=== PATIENT | female | born 1970 | race Caucasian/White ===

== ENCOUNTER 2019-04-12 02:08 | Inpatient (IN) | payer OTHER ==
[2019-04-12] MEDS ORDERED: Morphine 4 MG/ML VIAL ONE (02:26)
[2019-04-12] MEDS ORDERED: Ondansetron PF 4 MG/2 ML Vial ONE (02:26)
[2019-04-12 02:57] LABS: Hemoglobin 11.5 g/dL (12.0-16.0); Mean Corpuscular HGB CONC 32.6 g/dL (32.0-36.0); Mean Corpuscular Hemoglobin 27.6 pg (27.0-31.0); Mean Corpuscular Volume 84.6 fL (78.0-98.0); Red Blood Cell (RBC) Count 4.16 mill/uL (4.20-5.40); White Blood Cell (WBC) Count 2.7 thou/uL (4.8-10.8)
[2019-04-12 03:11] LABS: #Lymphocytes 0.3 thou/uL (1.20-3.40); #Monocytes 0.1 thou/uL (0.11-0.59); #Neutrophils 2.2 thou/uL (1.40-6.50); %Basophils 1.3 % (0.0-1.0); %Eosinophils 0.5 % (0.0-10.0); %Lymphocytes 11.2 % (21.0-51.0); %Monocytes 3.5 % (0.0-10.0); %Neutrophils 83.6 % (42.0-75.0); Mean Platelet Volume 11.8 fL (7.4-10.4); Platelet Count 44 thou/uL (130-400); Platelet Morphology Comment Appears Decreased
[2019-04-12 04:29] VITALS: BMI 29.9
[2019-04-12] MEDS ORDERED: Morphine 2 MG/ML SYRINGE SLOW IVP PRN ×2 (04:34→16:37)
[2019-04-12] MEDS ORDERED: Dextrose 5 %-0.45 % NaCl 1,000 ML IV SCH (04:45)
[2019-04-12] MEDS ORDERED: Dextrose 5% in Water 1,000 ML IV PRN (08:23)
[2019-04-12] MEDS ORDERED: Dextrose 50% Abboject 50 ML SYRINGE SLOW IVP PRN (08:23)
[2019-04-12] MEDS ORDERED: Insulin Regular 300 UNITS/3 ML VIAL SC PRN (08:23)
--- NOTE | 2019-04-12 08:27 | HP ---
PRIMARY CARE PHYSICIAN: Lilly Keenan. CHIEF COMPLAINT: Abdominal discomfort. HISTORY OF PRESENT ILLNESS: The patient is a 48-year-old female with rectal cancer, status post colostomy in 2011, status post radiation and chemotherapy, currently followed at [facility], presented to the emergency room at [facility] with above complaints. Per family member, she is currently not on any chemotherapy. The patient had sudden onset of abdominal discomfort yesterday around lunchtime along with nausea and vomiting. She is currently somnolent after the pain medicine. She is unable to describe her symptoms further. According to the family member, she had several episodes of vomiting. The vomitus was nonbilious. The abdominal pain was generalized, sharp in nature without any aggravating or relieving factor. She is unable to tell me much about daily cholecystotomy output. No fever or chills reported. In the emergency room, initial vital signs showed temperature 99.5, respiration of 13, pulse rate of 70, blood pressure 139/114 with O2 saturation of 100% on room air. She underwent CT scan of the abdomen in the emergency room that showed findings most consistent with mid to distal partial small-bowel obstruction without any free air. NG tube was placed. She was transferred to this facility for hospital admission. She received 1 g meropenem, fentanyl 100 mcg x2, Zofran with IV fluids at [facility]. PAST MEDICAL HISTORY: 1. Diabetes mellitus type 2 on oral hypoglycemic. 2. Colorectal cancer as discussed above. 3. Portal hypertension. 4. Anxiety. PAST SURGICAL HISTORY: 1. Colostomy. 2. Surgical intervention for portal hypertension. 3. Debridement of the necrotic wound of the abdominal wall in December of 2009. ALLERGIES: THE PATIENT IS ALLERGIC TO PENICILLIN, SULFA, AND MACROBID. CURRENT HOME MEDICATION: 1. Xanax 0.5 mg daily. 2. Lexapro 10 mg daily. 3. Metformin 1000 mg b.i.d. 4. Nadolol 40 mg daily. 5. Protonix 40 mg daily. 6. MiraLAX 17 g daily. SOCIAL HISTORY: The patient currently lives at home with her family. She denies current use of tobacco, alcohol, or drug use. FAMILY HISTORY: Positive for mother with breast cancer. REVIEW OF SYSTEMS: Review of systems cannot be reliably obtained from the patient due to current mentation. PHYSICAL EXAMINATION: VITAL SIGNS: As discussed above. GENERAL: A 48-year-old female, in no apparent distress. Abdominal pain improving per the patient report. HEENT: Head, atraumatic and normocephalic. Sclerae anicteric. Moist mucous membranes. No oral lesion. NECK: Supple. No JVD. No carotid bruit. LUNGS: Clear to auscultation bilaterally. No wheezing, rales, or rhonchi. HEART: S1, S2 present. Regular rate and rhythm. No rubs or gallops appreciated. ABDOMEN: Soft. There was voluntary guarding. Bowel sounds were somewhat hyperactive. There was generalized tenderness on mild to moderate superficial palpation. No rebound. Colostomy with liquid stool noted. EXTREMITIES: No edema or calf tenderness. NEUROLOGY: Grossly nonfocal. Moves all 4 extremities. PSYCHIATRY: Alert, awake, and oriented x3. SKIN: Warm and dry. LYMPH NODES: No palpable lymph nodes in the neck. PERIPHERAL VASCULAR: Radial pulses palpable bilaterally. MUSCULOSKELETAL: No joint swelling, tenderness. LABORATORY FINDINGS: CBC showed WBC 2.7 with hemoglobin 11.7, hematocrit 38.5, platelet count of 75. Repeat platelet was 44. Chemistry showed sodium 133, potassium 4.8, chloride 101, bicarb 20, BUN 11, creatinine 0.84, albumin of 3.8. Lactic acid was 1.6. IMAGING STUDIES: CT scan of the abdomen and pelvis by my review as discussed above. IMPRESSION: 1. Abdominal pain with nausea and vomiting secondary to mid to distal partial small-bowel obstruction. 2. History of colorectal cancer, status post chemotherapy and radiation. 3. Anxiety. 4. Portal hypertension. 5. Metabolic acidosis. 6. Hyponatremia. 7. Chronic kidney disease, stage 2. 8. Diabetes mellitus type 2. 9. Penicillin, nitrofurantoin, and sulfa allergy. 10. Chronic anemia. 11. Pancytopenia, probably secondary to portal hypertension/suspected cirrhosis. PLAN: The patient will be monitored on the surgical floor. We will continue NG tube with mild intermittent suction. General Surgery consultation. We will check coagulation profile. Monitor platelet counts. Monitor electrolytes closely. Change IV fluid to half NS. Insulin sliding scale. Resume home medications once tolerating p.o. Plan of care was discussed with the patient in detail. She stated understanding. Job ID: [id number]
[2019-04-12 08:29] LABS: Hemoglobin 11.8 g/dL (12.0-16.0); Platelet Count 44 thou/uL (130-400)
[2019-04-12 08:34] LABS: INR-International Normal Ratio 1.2; PTT 31.4 SEC (22.9-36.1); Prothrombin Time 14.8 SEC (12.0-14.7)
[2019-04-12] MEDS ORDERED: Calcium Carbonate 500 MG ChewTAB PO PRN (08:34)
[2019-04-12] MEDS ORDERED: Ondansetron ODT 4 MG TAB PO PRN (08:34)
[2019-04-12] MEDS ORDERED: Ondansetron PF 4 MG/2 ML Vial IVP PRN (08:34)
[2019-04-12] MEDS ORDERED: Labetalol HCl 100 MG/20 ML VIAL SLOW IVP PRN (08:38)
[2019-04-12] MEDS ORDERED: hydrALAZINE 20 MG/ML VIAL SLOW IVP PRN (08:38)
[2019-04-12 08:49] LABS: ALT (SGPT) 20 U/L (8-55); AST (SGOT) 17 U/L (5-34); Albumin 3.5 g/dL (3.5-5.0); Alkaline Phosphatase 92 U/L (40-150); Anion Gap 11 mmol/L (10-20); BUN (Urea Nitrogen) 11 mg/dL (7.0-18.7); Bilirubin, Total 1.1 mg/dL (0.2-1.2); Calc. Creatinine Clearance 120 mL/min (70-130); Calcium 8.5 mg/dL (7.8-10.44); Carbon Dioxide 25 mmol/L (22-29); Chloride 102 mmol/L (98-107); Estimated GFR-MDRD 85; Globulin 3.1 g/dL (2.4-3.5); Glucose 383 mg/dL (70-105); Magnesium 1.4 mg/dL (1.6-2.6); Phosphorus 3.6 mg/dL (2.3-4.7); Potassium 3.6 mmol/L (3.5-5.1); Protein, Total 6.6 g/dL (6.0-8.3); Sodium 134 mmol/L (136-145)
[2019-04-12] MEDS ORDERED: SODIUM CHLORIDE 0.9% IVPB SCH (09:00)
[2019-04-12] MEDS ORDERED: MAGNESIUM SULFATE IVPB SCH (09:00)
[2019-04-12] MEDS ORDERED: POTASSIUM CHLORIDE IVPB SCH (09:00)
[2019-04-12] MEDS: Sodium Chloride 0.45% 1,000 ML IV SCH ×3 (09:17→18:58)
[2019-04-12] MEDS: Famotidine/PF 20 mg/2ml Vial SLOW IVP SCH ×2 (09:19→21:51)
--- NOTE | 2019-04-12 09:24 | RAD ---
PORTABLE CHEST: HISTORY: NG tube placement. COMPARISON: None. FINDINGS: Heart size appears slightly enlarged. NG tube is seen with the tip, appears to be overlying the ante rior region of the stomach. The lungs are clear of infiltrates. IMPRESSION: Nasogastric tube in satisfactory position. POS: OFF
[2019-04-12] MEDS ORDERED: Magnesium Sulfate 4 GM in Sodium Chloride 0.9% 250 ML 250 ML IVPB SCH (09:30)
--- NOTE | 2019-04-12 10:12 | RAD ---
ABDOMEN AND PELVIS UPRIGHT AND SUPINE IMAGIN04/12/2019 HISTORY: Small bowel obstruction. COMPARISON: None. FINDINGS: There is a nasogastric tube in the upper abdomen, to the right of midline. There is a distended loop of small bowel with an air-fluid level in the epigastric region, consistent with the patient's histo ry of small bowel obstruction. Generalized paucity of bowel gas limits detailed assessment. Metalli c densities in the left lower quadrant suggest embolization coils, and there are numerous postoperati ve clips in the pelvis. IMPRESSION: 1. Nasogastric tube in place. 2. Distended small bowel loop with an air-fluid level in the mid abdomen is consistent with the prov ided history of small bowel obstruction. POS: OFF
[2019-04-12] MEDS ORDERED: traMADol HCl 50 MG TAB PO PRN (16:37)
[2019-04-12] MEDS: Insulin Regular 300 UNITS/3 ML VIAL SC PRN (18:22)
--- NOTE | 2019-04-12 19:17 | CON ---
DATE OF CONSULTATION: 04/12/2019 REQUESTING PHYSICIAN: Dr. Bradley White. HISTORY: A 48-year-old woman with previous history of colorectal carcinoma status post proctocolectomy with end-colostomy in 2011. The patient is received chemoradiation therapy as part of her treatment. She presented to [facility] yesterday with insidious onset of vague abdominal pain, associated with multiple episodes of nausea and vomiting. She was unsure if this was bilious. She did not look. The pain became generalized in nature and was not relieved by any [id number] remedies. Workup included a CT scan of the abdomen and pelvis, which was suggestive of partial small-bowel obstruction, for which the patient was transferred to [facility]. At the time of my evaluation, the patient is awake and alert. She has a nasogastric tube, which was placed yesterday and has returned approximately 300 mL of nonbilious effluent. Colostomy also has started to produce over 300 mL of bilious stool. PAST MEDICAL HISTORY: Significant for colorectal carcinoma, type 2 diabetes mellitus, portal hypertension, and chronic anxiety disorder. PAST SURGICAL HISTORY: Pertinent for proctocolectomy with colostomy in 2011. Other pertinent surgical history includes debridement of necrotic abdominal wall wound in 2009. SOCIAL HISTORY: The patient lives independently. She denies any cigarette smoking, ethanol, or illicit drug abuse. FAMILY HISTORY: Noncontributory for this patient's age. PRE-HOSPITAL MEDICATIONS: Include, 1. Protonix 40 mg p.o. daily. 2. Nadolol 40 mg p.o. daily. 3. MiraLAX 17 g p.o. daily. 4. Metformin 1000 mg p.o. b.i.d. 5. Xanax 0.5 mg p.o. daily. 6. Lexapro 10 mg p.o. daily. ALLERGIES: TO PENICILLIN, SULFA DRUGS, AND NITROFURANTOIN. REVIEW OF SYSTEMS: Ten-point review of systems is essentially unremarkable except as stated in past medical history and chief complaint. PHYSICAL EXAMINATION: GENERAL: A 48-year-old woman who is otherwise in no acute distress at the time of my evaluation. VITAL SIGNS: Blood pressure 112/75, pulse 96, respiratory rate is 18, temperature is 98.1 degrees Fahrenheit, oxygen saturation 96% on room air. HEENT: Normocephalic and atraumatic. HEART: Regular rate and rhythm. No murmurs or gallops auscultated. LUNGS: Clear to auscultation bilaterally. Her breathing is regular and nonlabored. ABDOMEN: Soft, moderately distended, and mildly tender to palpation with no gross rebound tenderness present. Colostomy is viable and functional with stool and gas. The patient clearly has no peritoneal signs on examination. Liver and spleen are nonpalpable below costal margin. NEUROLOGIC: No focal deficits present. LABORATORY FINDINGS: CBC with 2700 white blood cells, hemoglobin and hematocrit 11.5 and 35.2 respectively. Platelet count 44,000. Metabolic profile; sodium 134, potassium is 3.6, chloride is 102, bicarb is 25, BUN is 11, creatinine 0.73, glucose 383, phosphorus 3.6, magnesium 1.4, AST and ALT 17 and 20 respectively. I have personally reviewed the CT scan of the abdomen and pelvis, which was obtained prior to this admission, which shows multiple distended loops of small bowel with air and fluid. There is no clear transition zone present. IMPRESSION: Acute partial small-bowel obstruction, likely secondary to adhesions versus resolving gastroenteritis. RECOMMENDATIONS: 1. Nasogastric tube will be discontinued, and the patient will be started on a clear liquid diet. 2. We will continue with serial physical examination and make further recommendations as necessary. There clearly is no acute surgical indication for this patient at this time. Thank you again, Dr. White, for allowing me the opportunity to participate in the care of this patient. Job ID: [id number]
[2019-04-12] MEDS: Famotidine 20 MG TAB PO SCH (21:51)
[2019-04-13] MEDS: Insulin Regular 300 UNITS/3 ML VIAL SC PRN ×4 (00:52→17:42)
--- NOTE | 2019-04-13 01:00 | PRG ---
DATE OF SERVICE: 04/12/2019 SUBJECTIVE: Ms. Cevallos is a 48-year-old female who was seen in evaluation on round this evening. The patient had general surgery consult with suspicion of acute partial small-bowel obstruction, status post proctocolectomy with end colostomy. The patient had discontinue NG tube earlier today. Since then, the patient had been doing good. There is no nausea, vomiting, or abdominal pain. When I was seeing her, she was sleeping comfortably. Her vital signs have been stable. PLAN: Continue to follow up with no surgical indication at this time per Dr. Conrad earlier today. Job ID: [id number] MTDD
[2019-04-13] MEDS: Sodium Chloride 0.45% 1,000 ML IV SCH ×3 (02:39→16:40)
[2019-04-13 06:31] LABS: #Eosinphils 0.1 thou/uL (0.0-0.7); #Lymphocytes 0.5 thou/uL (1.20-3.40); #Monocytes 0.2 thou/uL (0.11-0.59); #Neutrophils 1.3 thou/uL (1.40-6.50); %Eosinophils 2.5 % (0.0-10.0); %Lymphocytes 24.5 % (21.0-51.0); %Monocytes 9.5 % (0.0-10.0); %Neutrophils 62.4 % (42.0-75.0); Hemoglobin 10.5 g/dL (12.0-16.0); Mean Corpuscular HGB CONC 32.9 g/dL (32.0-36.0); Mean Corpuscular Hemoglobin 28.2 pg (27.0-31.0); Mean Corpuscular Volume 85.7 fL (78.0-98.0); Platelet Count 47 thou/uL (130-400); RBC Distribution Width 15.2 % (11.5-14.5); Red Blood Cell (RBC) Count 3.73 mill/uL (4.20-5.40)
[2019-04-13 07:00] LABS: ALT (SGPT) 15 U/L (8-55); AST (SGOT) 13 U/L (5-34); Alkaline Phosphatase 74 U/L (40-150); Anion Gap 8 mmol/L (10-20); BUN (Urea Nitrogen) 10 mg/dL (7.0-18.7); Calc. Creatinine Clearance 139 mL/min (70-130); Carbon Dioxide 24 mmol/L (22-29); Chloride 102 mmol/L (98-107); Estimated GFR-MDRD Greater than 90; Globulin 2.7 g/dL (2.4-3.5); Glucose 234 mg/dL (70-105); Magnesium 1.8 mg/dL (1.6-2.6); Phosphorus 1.9 mg/dL (2.3-4.7); Potassium 3.4 mmol/L (3.5-5.1); Protein, Total 5.7 g/dL (6.0-8.3); Sodium 131 mmol/L (136-145)
[2019-04-13 08:12] LABS: Large Platelets SLIGHT; MDiff Complete? YES; Ovalocytes SLIGHT = 2-5 cells (100X) (0-1/hpf); Platelet Morphology Comment Appears Decreased; Polychromasia SLIGHT = 2-3 cells (100X) (0-2/hpf)
[2019-04-13] MEDS: Famotidine/PF 20 mg/2ml Vial SLOW IVP SCH ×2 (08:16→19:44)
[2019-04-13] MEDS: Famotidine 20 MG TAB PO SCH ×2 (08:17→19:45)
[2019-04-13] MEDS ORDERED: Potassium Phosphate 30 MMOL, Magnesium Sulfate 2 GM in Sodium Chloride 0.9% 250 ML 250 ML IVPB SCH (08:45)
[2019-04-13] MEDS ORDERED: PHOS-NAK 1 PKT PACK PO SCH (09:00)
--- NOTE | 2019-04-13 12:13 | PRG ---
DATE OF SERVICE: 04/13/2019 SUBJECTIVE: Ms. Cevallos is a 48-year-old woman, presented with abdominal pain, nausea, and vomiting. I saw her yesterday, reviewed all her studies, which was consistent with acute partial small-bowel obstruction. Nasogastric tube was discontinued. The patient was started on a clear liquid diet yesterday. She tolerates diet. Reports no abdominal pain, nausea, or vomiting. Colostomy remains productive of liquid stool and gas. OBJECTIVE: VITAL SIGNS: This morning include blood pressure of 146/81, pulse 88, respiratory rate 16, temperature 98.5 degrees Fahrenheit, oxygen saturation 97% on room air. ABDOMEN: Soft, nontender, nondistended. Colostomy is viable and functional. She clearly has no abdominal tenderness or peritoneal signs on examination. LABORATORY FINDINGS: Include a CBC with 2000 white blood cells, hemoglobin and hematocrit 10.5 and 32.0 respectively, platelet count is stable at 47,000. Metabolic profile; sodium 131, potassium 3.4, chloride is 102, bicarb is 24, BUN 10, creatinine 0.63, glucose 234, magnesium 1.8, phosphorus 1.9. IMPRESSION: 1. Resolved acute partial small-bowel obstruction. 2. Acute hypokalemia. 3. Acute hypomagnesemia. 4. Acute hypophosphatemia. PLAN: 1. Correct abnormal electrolytes. 2. We will advance diet and activity. 3. There remains no acute surgical indication for this patient at this time. General Surgery will sign off this case and will be available to re-evaluate the patient on demand. 4. The patient may be discharged home if tolerating general diet by morning at the discretion of the Primary Service. Job ID: [id number]
--- NOTE | 2019-04-13 16:37 | PDOC.HOSPP ---
- Subjective Encounter Date: 04/13/19 Encounter Time: 09:30 Subjective: Patient seen and examined for SBO. NG tube dced. Some nausea. On Clear liqd diet. No new complaints. No overnight events - Objective Vital Signs & Weight: Vital Signs (12 hours) Temp Pulse Resp BP Pulse Ox 04/13/19 15:56 98.4 F 87 16 109/74 95 04/13/19 11:02 98.5 F 88 16 146/81 H 97 04/13/19 08:15 95 04/13/19 07:22 98.7 F 84 16 129/79 95 Weight Weight 180 lb 0.119 oz I&O: 04/12/19 04/13/19 04/14/19 06:59 06:59 06:59 Intake Total 2150 1840 Output Total 550 200 Balance -550 1950 1840 Result Diagrams: 04/13/19 06:18 04/13/19 06:18 Additional Labs: Accuchecks 04/13/19 04/13/19 04/13/19 11:08 05:46 00:12 POC Glucose 199 H 222 H 230 H 04/12/19 04/12/19 20:43 18:02 POC Glucose 252 H 251 H Radiology Reviewed by me: Yes (KUB - reviewed) Hospitalist ROS - Review of Systems Respiratory: denies: cough, dry, shortness of breath, hemoptysis, SOB with excertion, pleuritic pain, sputum, wheezing, other Cardiovascular: denies: chest pain, palpitations, orthopnea, paroxysmal noc. dyspnea, edema, light headedness, other - Medication Medications: Active Medications Generic Name Dose Route Start Last Admin Trade Name Freq PRN Reason Stop Dose Admin Famotidine 20 mg 04/12/19 09:00 04/13/19 08:16 Pepcid SLOW IVP 20 mg Q12HR MARY ELLEN Administration Famotidine 20 mg 04/12/19 21:00 04/13/19 08:17 Pepcid PO Not Given BID MARY ELLEN Insulin Human Regular 0 units 04/12/19 08:23 04/13/19 06:27 Humulin R SC 2 unit .BEDTIME SLIDING SC PRN Administration Bedtime Correctional Scale Insulin Human Regular 0 units 04/12/19 12:52 04/13/19 12:41 Humulin R SC 2 unit .MODERATE SLIDING SC PRN Administration Moderate Correctional Scale Ondansetron HCl 4 mg 04/12/19 08:34 04/12/19 11:01 Zofran IVP 4 mg Q6H PRN Administration Nausea/Vomiting - Exam General Appearance: NAD Heart: RRR, no rubs Respiratory: CTAB, no rales Gastrointestinal: soft, non-distended, no palpable masses, tender to palpation ( mild gen tenderness) Gastrointestinal - other findings: Colostomy with liqd stool Extremities: no edema Neurological: no new deficit Hosp A/P - Plan incentive spirometry, out of bed/ambulate IMPRESSION: 1. SBO causing abd pain/nausea 2. History of colorectal cancer, status post chemotherapy and radiation. 3. Anxiety. 4. Portal hypertension/Cirrhosis 5. Metabolic acidosis. 6. Hyponatremia/hypomagnesemia/hypophosphatemia 7. Chronic kidney disease, stage 2. 8. Diabetes mellitus type 2. 9. Penicillin, nitrofurantoin, and sulfa allergy. 10. Chronic anemia. 11. Pancytopenia prob due to hypersplenism PLAN: Replace Phosphorus/Potassium Advance diet Ambulate AM labs No Lovenox due to low platelets
--- NOTE | 2019-04-13 23:07 | PRG ---
DATE OF SERVICE: 04/13/2019 SUBJECTIVE: Ms. Cevallos is a _48 years old_ female with a history of colostomy and suspected partial small bowel obstruction resolved. She is under regular diet today. She reports no nausea or vomiting, however, she reports not in much because whenever she is sick, she likes to sleep a lot. She does not feel the need to eat or to feel hungry. She promised she will eat breakfast tomorrow to see if she tolerated with regular diet. Otherwise, she voices no concerns. She reports no fever or shortness of breath. Her vital signs have been stable. PLAN: Plan will be to be continue supportive care, correct abnormal electrolytes, continue regular diet. If the patient tolerated with regular diet and colostomy is working well, General Surgery will be sign off at this point. Job ID: [id number] MTDD
[2019-04-14] MEDS: Sodium Chloride 0.45% 1,000 ML IV SCH (04:25)
[2019-04-14 05:28] LABS: Phosphorus 2.1 mg/dL (2.3-4.7)
[2019-04-14 05:31] LABS: Anion Gap 9 mmol/L (10-20); BUN (Urea Nitrogen) 8 mg/dL (7.0-18.7); Calc. Creatinine Clearance 137 mL/min (70-130); Calcium 8.2 mg/dL (7.8-10.44); Carbon Dioxide 24 mmol/L (22-29); Chloride 104 mmol/L (98-107); Estimated GFR-MDRD Greater than 90; Glucose 174 mg/dL (70-105); Magnesium 1.9 mg/dL (1.6-2.6); Phosphorus 2.1 mg/dL (2.3-4.7); Potassium 3.4 mmol/L (3.5-5.1); Sodium 134 mmol/L (136-145)
[2019-04-14] MEDS: Insulin Regular 300 UNITS/3 ML VIAL SC PRN ×2 (06:37→13:43)
[2019-04-14] MEDS ORDERED: Potassium Phosphate 30 MMOL in Sodium Chloride 0.9% 500 ML IVPB SCH (06:45)
[2019-04-14] MEDS: Famotidine 20 MG TAB PO SCH (08:02)
[2019-04-14] MEDS: Famotidine/PF 20 mg/2ml Vial SLOW IVP SCH (08:13)
[2019-04-14 11:28] VITALS: BP 120/73; TEMP 97.7
--- NOTE | 2019-04-14 12:02 | DIS ---
DATE OF ADMISSION: 04/12/2019 DATE OF DISCHARGE: 04/14/2019 DISCHARGE DISPOSITION: Home. FOLLOWUP: 1. Follow up with primary care physician, Dr. Ted Bell, in 1 week. 2. Follow up with Dr. Armond Conrad in 2 weeks. 3. Repeat renal panel after 1 week is recommended, primary care physician advised to follow. ALLERGIES: THE PATIENT IS ALLERGIC TO PENICILLIN, SULFA, AND NITROFURANTOIN. DISCHARGE MEDICATIONS: 1. Lantus 10 units daily. 2. Potassium phosphate 250 mg 4 times daily for 10 doses. 3. All other home medications were left unchanged. The patient was seen and examined on the day of discharge. Denies any new complaints. BRIEF HOSPITAL COURSE: The patient is a 48-year-old female with rectal cancer, status post colostomy in 2011, status post radiation and chemotherapy, currently followed at [facility], presented to the emergency room at [facility] with abdominal discomfort. CT scan of the abdomen in the emergency room showed findings consistent with mid to distal partial small-bowel obstruction. NG tube was placed. She was kept n.p.o. and was started on IV fluids. She was monitored on the surgical floor. She was seen by General Surgery, Dr. Conrad. After conservative treatment, NG tube was discontinued. She also had some electrolyte abnormalities, which were replaced. She is tolerating regular consistency and has been cleared by General Surgery for discharge. FINAL DIAGNOSES: 1. Small bowel obstruction causing abdominal pain and nausea. 2. History of colorectal cancer, status post chemotherapy and radiation. 3. Portal hypertension with suspected cirrhosis. 4. Anxiety. 5. Hyponatremia, hypomagnesemia, and hypophosphatemia. 6. Chronic kidney disease, stage 2. 7. Diabetes mellitus, type 2. 8. Chronic anemia. 9. Pancytopenia, probably due to hypersplenism. 10. Diabetes mellitus, type 2. 11. Chronic anemia. 12. Penicillin, nitrofurantoin and sulfa allergy. 13. Moderate protein-calorie malnutrition. SIGNIFICANT LABORATORY DATA: Phosphorus 1.9, potassium 3.4, magnesium 1.4. Job ID: [id number] [facility]
== END 2019-04-14 14:40 | disposition home or self-care (01) | DRG 389 ==
LOC: ERS 02:08 → SURG A 02:55
PROVIDERS: ADMIT Hospitalist; ATTEND Hospitalist
DX: K56.600 Partial intestinal obstruction, unspecified as to cause (principal); C19 Malignant neoplasm of rectosigmoid junction; K76.6 Portal hypertension; E87.1 Hypo-osmolality and hyponatremia; D61.818 Other pancytopenia; E44.0 Moderate protein-calorie malnutrition; E87.2 Acidosis; K74.60 Unspecified cirrhosis of liver; F41.9 Anxiety disorder, unspecified; E83.42 Hypomagnesemia; E83.39 Other disorders of phosphorus metabolism; I12.9 Hypertensive chronic kidney disease with stage 1 through stage 4 chronic kidney disease, or unspecified chronic kidney disease; E11.22 Type 2 diabetes mellitus with diabetic chronic kidney disease; N18.2 Chronic kidney disease, stage 2 (mild); D63.1 Anemia in chronic kidney disease; D73.1 Hypersplenism; Z88.1 Allergy status to other antibiotic agents; Z88.0 Allergy status to penicillin; Z88.2 Allergy status to sulfonamides; K52.9 Noninfective gastroenteritis and colitis, unspecified; E87.6 Hypokalemia; Z68.30 Body mass index [BMI] 30.0-30.9, adult
CPT/HCPCS: 36415; 36416; 71045; 74019; 80053; 80069; 83036; 83735; 84100; 85025; 85610; 85730; 96361; 96374; 96375; J1815; J2270; J2405; J3475; J3480; J7050; S0028

== ENCOUNTER 2019-04-24 11:34 | Inpatient (IN) | payer OTHER ==
[2019-04-24] MEDS ORDERED: ISOVUE-370 76%-LOCM 1 ML ONE (13:02)
--- NOTE | 2019-04-24 13:14 | CT ---
EXAM: CT ABDOMEN AND PELVIS HISTORY: Colorectal cancer. History of small bowel obstruction. Abdominal pain. COMPARISON: 04/11/2015, 04/12/2019 Procedure: Multiple contiguous axial images were obtained and a CT of the abdomen and pelvis with IV contrast. C oronal reformats were performed. FINDINGS: Lower Chest: within normal limits. Vessels: Normal caliber aorta. No periaortic fat stranding Heart: Heart size. No significant pericardial fluid Abdomen: Portal vein:Patent Gallbladder: Grossly unremarkable Liver: Appropriate enhancement. No abnormal enhancing masses. Pancreas: within normal limits. Spleen: Splenomegaly. The measures 18.8 cm. Adrenals: within normal limits. Kidneys: Symmetric enhancement. No obstructive uropathy Peritoneum: There is free fluid. No pneumoperitoneum, mass or lymphadenopathy Bowel: Limited evaluation due to lack of oral contrast. Nasogastric tube is identified. Multiple flui d-filled loops of small bowel, similar to the examination from April 29. The distal small bowel loops do appear to be decompressed. The exact transition point is difficult to determine but th ere is evidence for a at least partial small bowel obstruction. There are scattered fecal material in a nondistended, nondilated colon. Left lower quadrant colostomy is identified. There is evidence o f stable parastomal mesentery. No obvious herniation of the small bowel through the ostomy. Mesentery and Retroperitoneum: No enlarged mesenteric or retroperitoneal lymph nodes. Abdominal Wall: Left lower quadrant colostomy is redemonstrated. Pelvis: Reproductive Organs: Surgically absent uterus. Pelvis: Slow surgical changes in the posterior pelvis, in the expected region of the rectum are redem onstrated. Bladder: Decompressed. Grossly unremarkable. Bones: within normal limits. IMPRESSION: 1. Redemonstration of a early/partial small bowel obstruction. The exact level of transition is diffi cult to appreciate. Consider general surgical consultation. 2. Left lower quadrant colostomy. 3. Previous proctocolectomy. 4. Splenomegaly.
[2019-04-24] MEDS ORDERED: Ondansetron PF 4 MG/2 ML Vial ONE (14:05)
[2019-04-24] MEDS ORDERED: Morphine 4 MG/ML VIAL ONE (14:05)
[2019-04-24] MEDS ORDERED: Ondansetron PF 4 MG/2 ML Vial IVP PRN (15:16)
[2019-04-24] MEDS ORDERED: Acetaminophen 325 MG TAB PO PRN (15:16)
[2019-04-24] MEDS ORDERED: Fentanyl 100 MCG/2 ML VIAL SLOW IVP PRN ×2 (15:29)
[2019-04-24] MEDS ORDERED: Dextrose 5% in Water 1,000 ML IV PRN (15:37)
[2019-04-24] MEDS ORDERED: Dextrose 50% Abboject 50 ML SYRINGE SLOW IVP PRN (15:37)
[2019-04-24] MEDS ORDERED: Sodium Chloride 0.9% (PF) 10 ML VIAL FS PRN (15:52)
--- NOTE | 2019-04-24 16:38 | HP ---
PRIMARY CARE PHYSICIAN: Dr. Bell. CHIEF COMPLAINT: Nausea, vomiting, and abdominal pain. HISTORY OF PRESENT ILLNESS: Ms. Cevallos is a 48-year-old female with rectal cancer, status post colostomy in 2011, status post radiation and chemotherapy, currently followed at [facility], who presented to the emergency room in [place] with abdominal pain, nausea, and vomiting. The patient started having abdominal pain this morning, reports vomiting and was seen at [facility] and diagnosed with a small-bowel obstruction. CT scan done this morning; impression, re-demonstration of early partial small bowel obstruction. Exact level of transition is difficult to appreciate. Consider general surgical consult; left lower quadrant colostomy, previous proctocolectomy, splenomegaly. LABORATORY DATA: White blood cell count 3, hemoglobin 11.8, hematocrit 38.6. Carbon dioxide 21. Glucose 267. Lipase is 5. The patient was given several doses of fentanyl, was given 50 mcg en route, was still vomiting on the transition from [facility] to [facility], where she was transferred for admission and surgical consult. The patient was admitted for a similar complaint and discharged on 04/14/2019. She will be readmitted to the hospital for further management. PAST MEDICAL HISTORY: Diabetes type 2, on oral hypoglycemic; colorectal cancer as discussed above; portal hypertension; anxiety. PAST SURGICAL HISTORY: Colostomy; surgical intervention for portal hypertension; debridement of necrotic wound of the abdominal wall in December of 2009. ALLERGIES: PENICILLIN, SULFA, AND MACROBID. HOME MEDICATIONS: These are still need to be verified; 1. Xanax 0.5 mg p.o. daily. 2. Lexapro 10 mg p.o. daily. 3. Metformin 1000 mg p.o. b.i.d. 4. Nadolol 40 mg p.o. daily. 5. Protonix 40 mg p.o. daily. 6. MiraLAX 17 g p.o. daily. 7. Insulin Lantus 10 units subcu daily. 8. K-Phos 250 mg p.o. q.i.d. SOCIAL HISTORY: The patient currently lives at home with her family. FAMILY HISTORY: Positive with mother for breast cancer. REVIEW OF SYSTEMS: Review of systems cannot be reliably obtained as the patient is somewhat somnolent after medication given to her by the EMS. PHYSICAL EXAMINATION: VITAL SIGNS: Blood pressure 135/76, pulse is 59, respirations are 16, temperature is 98.4, pO2 saturations are 95% on room air. CONSTITUTIONAL: The patient is somnolent, but easily aroused. She appears nontoxic. She is oriented to person, place, and time. HEENT: Head is atraumatic and normocephalic. Eyes, pupils are equally round and reactive to light. Eyelids are normal to inspection. ENT; mucous membranes are moist. Mouth exam is normal. NECK: Trachea is midline. No tenderness. RESPIRATORY/CHEST: Breath sounds are clear. Chest expansion is equal. CARDIOVASCULAR: Regular heart rate and rhythm. Heart sounds are normal. ABDOMEN: Diffusely tender. Distention is present. Colostomy present to left lower quadrant with excretions in the bag. Bowel sounds are decreased. No peritoneal signs. BACK: Normal range of motion. No tenderness. EXTREMITIES: Upper extremities; range of motion is normal, motor strength is normal, radial pulses are normal. Lower extremities; normal range of motion. Sensation intact. Motor strength is normal. Pedal pulses are normal. NEUROLOGIC: The patient is somnolent, will answer questions when asked. Speech is normal. SKIN: Warm and dry. Normal in color. PLAN/ASSESSMENT: 1. Small bowel obstruction, appears partial on the CT scan. Dr. Lorenzo has been notified by the emergency room and agrees to consult and see the patient. NG tube has been placed on a low to intermittent suction. We will add pain medications, Zofran. We will await Dr. Lorenzo's recommendations. 2. History of diabetes type 2. Add a sliding scale. Accu-Cheks before meals at bedtime. We will trend. 3. History of hypertension, restart home medications as needed. 4. Case was discussed with Dr. Molina, who agrees with plan. 5. Deep venous thrombosis prophylaxis with SCDs. Gastrointestinal prophylaxis has been started. 6. Hospital course is dependent on clinical findings. Job ID: [id number]
[2019-04-24 16:56] VITALS: BMI 28.2
[2019-04-24] MEDS: Sodium Chloride 0.45% 1,000 ML IV SCH (17:31)
[2019-04-24] MEDS: Pantoprazole 40 MG VIAL IVP SCH (19:38)
[2019-04-25] MEDS: Sodium Chloride 0.45% 1,000 ML IV SCH ×3 (05:28→20:43)
[2019-04-25 06:01] LABS: ALT (SGPT) 15 U/L (8-55); AST (SGOT) 17 U/L (5-34); Albumin 3.3 g/dL (3.5-5.0); Alkaline Phosphatase 63 U/L (40-150); Anion Gap 8 mmol/L (10-20); BUN (Urea Nitrogen) 13 mg/dL (7.0-18.7); Calc. Creatinine Clearance 115 mL/min (70-130); Calcium 8.6 mg/dL (7.8-10.44); Carbon Dioxide 26 mmol/L (22-29); Chloride 105 mmol/L (98-107); Estimated GFR-MDRD 86; Globulin 2.7 g/dL (2.4-3.5); Glucose 159 mg/dL (70-105); Potassium 3.2 mmol/L (3.5-5.1); Sodium 136 mmol/L (136-145)
[2019-04-25 06:09] LABS: #Lymphocytes 0.7 thou/uL (1.20-3.40); #Monocytes 0.2 thou/uL (0.11-0.59); #Neutrophils 2.6 thou/uL (1.40-6.50); %Basophils 0.6 % (0.0-1.0); %Eosinophils 1.2 % (0.0-10.0); %Lymphocytes 20.1 % (21.0-51.0); %Monocytes 5.9 % (0.0-10.0); %Neutrophils 72.2 % (42.0-75.0); Hemoglobin 11.4 g/dL (12.0-16.0); Mean Corpuscular HGB CONC 31.9 g/dL (32.0-36.0); Mean Corpuscular Hemoglobin 27.2 pg (27.0-31.0); Mean Corpuscular Volume 85.1 fL (78.0-98.0); Mean Platelet Volume 11.7 fL (7.4-10.4); Platelet Count 59 thou/uL (130-400); RBC Distribution Width 15.4 % (11.5-14.5); Red Blood Cell (RBC) Count 4.21 mill/uL (4.20-5.40); White Blood Cell (WBC) Count 3.7 thou/uL (4.8-10.8)
--- NOTE | 2019-04-25 11:57 | CON ---
DATE OF CONSULTATION: CHIEF COMPLAINT: Abdominal pain and vomiting. HISTORY OF PRESENT ILLNESS: This is a 48-year-old female, who is status post abdominoperineal resection for rectal cancer at [facility] in 2011. She says she is cancer-free and she has a permanent colostomy. She was recently admitted for a small bowel obstruction, which resolved about 2 weeks ago and now has recurred. PAST MEDICAL HISTORY: Colon cancer, portal hypertension, diabetes, and anxiety. PAST SURGICAL HISTORY: Abdominal peroneal resection in 2011. MEDICATIONS: 1. Xanax. 2. Lexapro. 3. Metformin. 4. Nadolol. 5. MiraLAX. 6. Insulin. ALLERGIES: TO PENICILLIN, MACROBID, AND SULFA. SOCIAL HISTORY: She is , disabled. No tobacco. Rare alcohol. FAMILY HISTORY: Diabetes and hypertension. PHYSICAL EXAMINATION: VITAL SIGNS: Temperature 98.5, pulse 65, and blood pressure 126/77. GENERAL: She is awake. Has an NG in place. NG is putting out minimal only 100 out. ABDOMEN: Soft and nondistended. There is stool in her colostomy. IMAGING DATA: CT scan shows dilated small bowel with no transition zone. LABORATORY DATA: Her white count is 3.7, H and H are 11 and 35, and platelet count 59,000. Electrolytes, elevated glucose at 159. Creatinine 0.7. LFTs fine. ASSESSMENT: Partial small bowel obstruction. PLAN: Gastrografin swallow via NG tube. Job ID: [id number]
--- NOTE | 2019-04-25 13:08 | RAD ---
Small bowel exam/follow-through HISTORY: Colon cancer. Obstruction. FINDINGS: [employer] shows ostomy appliance over the left abdomen. Contrast material within the urinar y bladder from recent CT. Gastrografin contrast was administered through the nasogastric tube. Mild dilatation of loops of jeju num within the mid abdomen are less pronounced than on the recent CT. At 1 hour, there is faint contrast within the remaining colon. Contrast is apparent at the splenic flexure at 2 hours. IMPRESSION: No high-grade bowel obstruction on this exam. Small bowel distention has improved slightl y.
[2019-04-25] MEDS ORDERED: MD-Gastroview 120 ML BOT ONE (13:22)
--- NOTE | 2019-04-25 15:26 | PRG ---
DATE OF SERVICE: 04/25/2019 SUBJECTIVE: The patient is seen and examined at bedside. She just came back from her testing on her small bowel. She is still very sleepy, but apparently, she had a lot of output in her bag postprocedure. OBJECTIVE: VITAL SIGNS: Blood pressure is 126/77, pulse is 65, temperature is 98.5, respirations 16, and O2 saturation is 92% on room air. HEENT: Her oral mucosa is dry. Conjunctivae are pinkish. Sclerae are nonicteric. LUNGS: Clear. HEART: S1 and S2 normal. She has an NG tube in her right nostril. ABDOMEN: Soft. Mildly distended. There is a left lower quadrant colostomy bag in place with a liquidy brownish fluid. Bowel sounds are present. EXTREMITIES: No clubbing, cyanosis, or edema. NEUROLOGIC: She is alert and oriented x4. There are no any motor or sensory deficits. LABORATORY DATA: Labs showed white count of 3.6, hemoglobin 11.4, hematocrit 35.8, platelet count is 59,000. Sodium of 136, potassium 3.2, chloride 105, CO2 of 26, BUN 13, creatinine of 0.72, glucose is ranging from 156 to 267 and the rest of chemistry is within normal limits. Small bowel x-ray results showed small-bowel distention, which improved slightly compared to the previous examination and there was no high-grade bowel obstruction on this examination. IMPRESSION: 1. Partial small-bowel obstruction, resolved. 2. Diabetes mellitus, type 2. 3. Hypertension. PLAN: We are going to restart her clonazepam and restart her citalopram in the next day after she is not using Zofran because of the interaction between those two. We will keep her on NG tube slow suctioning, and we will do Accu-Cheks q.6 hours and cover with mild sliding scale. Most likely, we will start her on clear liquids, but this is left up to the surgeon sometime soon. Job ID: [id number]
[2019-04-25] MEDS: clonazePAM 0.5 MG TAB PO SCH (20:42)
[2019-04-25] MEDS: Pantoprazole 40 MG VIAL IVP SCH (20:42)
[2019-04-26] MEDS: clonazePAM 0.5 MG TAB PO SCH ×2 (08:25→20:21)
[2019-04-26] MEDS ORDERED: Escitalopram Oxalate 10 mg Tablet PO SCH (09:00)
[2019-04-26 09:22] LABS: #Eosinphils 0.1 thou/uL (0.0-0.7); #Lymphocytes 0.5 thou/uL (1.20-3.40); #Monocytes 0.1 thou/uL (0.11-0.59); #Neutrophils 1.3 thou/uL (1.40-6.50); %Basophils 0.8 % (0.0-1.0); %Eosinophils 2.8 % (0.0-10.0); %Lymphocytes 23.9 % (21.0-51.0); %Monocytes 6.6 % (0.0-10.0); Hemoglobin 10.7 g/dL (12.0-16.0); Mean Corpuscular HGB CONC 32.5 g/dL (32.0-36.0); Mean Corpuscular Hemoglobin 27.7 pg (27.0-31.0); Mean Corpuscular Volume 85.1 fL (78.0-98.0); Mean Platelet Volume 11.2 fL (7.4-10.4); Platelet Count 50 thou/uL (130-400); RBC Distribution Width 15.5 % (11.5-14.5); Red Blood Cell (RBC) Count 3.87 mill/uL (4.20-5.40)
[2019-04-26 09:35] LABS: Anion Gap 14 mmol/L (10-20); BUN (Urea Nitrogen) 14 mg/dL (7.0-18.7); Calc. Creatinine Clearance 129 mL/min (70-130); Calcium 8.2 mg/dL (7.8-10.44); Carbon Dioxide 21 mmol/L (22-29); Chloride 108 mmol/L (98-107); Estimated GFR-MDRD Greater than 90; Glucose 126 mg/dL (70-105); Potassium 3.1 mmol/L (3.5-5.1); Sodium 140 mmol/L (136-145)
[2019-04-26] MEDS: HumaLOG 300 UNITS/3 ML VIAL SC PRN ×2 (12:41→16:29)
[2019-04-26] MEDS: Nadolol 40 MG TAB PO SCH (12:43)
[2019-04-26] MEDS: K-Phos Neutral 250 MG TAB PO SCH ×3 (12:44→20:20)
--- NOTE | 2019-04-26 13:20 | PRG ---
DATE OF SERVICE: 04/26/2019 SUBJECTIVE: The patient is doing well. No nausea or vomiting. She has had multiple bowel movements. Small bowel followthrough showed no evidence of obstruction. OBJECTIVE: VITAL SIGNS: Temperature 97.7, pulse 71, and blood pressure 116/70. ABDOMEN: Soft, nondistended, and nontender. Ostomy working well. ASSESSMENT: Small bowel obstruction, resolved. PLAN: Discontinue NG. Clear liquid diet, advance as tolerated. No surgery needed. Job ID: [id number]
--- NOTE | 2019-04-26 16:32 | PRG ---
DATE OF SERVICE: 04/26/2019 SUBJECTIVE: The patient is seen and examined at the bedside. She has NG tube in her right nostril. She looks tired and somewhat sick, but she states that she feels better this morning. OBJECTIVE: VITAL SIGNS: Blood pressure is 116/70, pulse is 71, temperature is 97.7, respiratory rate is 12, O2 saturation is 98% on room air. HEENT: Sclerae are nonicteric. Oral mucosa is dry. NECK: Supple. LUNGS: Clear. HEART: S1 and S2, normal. ABDOMEN: Soft, mildly distended. She has a colostomy bag in the left lower quadrant of the abdomen, which has small amount of liquid, which is brownish in color. NEUROLOGIC: She follows my commands. She moves her all 4 extremities. There are no any sensory or motor deficits present. Cranial nerves are intact. LABORATORY DATA: Showed white count of 2.0, hemoglobin of 10.7, hematocrit 33.0, platelet count is 50. Sodium of 140, potassium 3.1, chloride 108, CO2 of 21, BUN 14, creatinine 0.64. Glycemia is ranging from 116 to 248. Calcium is 8.2. IMPRESSION: 1. Partial small-bowel obstruction, resolved. 2. Diabetes mellitus, type 2. 3. Pancytopenia. DISCUSSION: The case was discussed with Dr. Lorenzo, who recommends discontinuation of NG tube and starting clear liquids and advancing diet as tolerated since the partial obstruction has resolved. Also, we will discuss with her recent chemotherapy therapy treatments for her colorectal cancer. If she had any chemotherapy done recently, which would explain her pancytopenia. Also, we will replace her potassium, check her magnesium and if she tolerates her advanced diet, she will be going home tomorrow. Job ID: [id number]
[2019-04-26] MEDS: Pantoprazole 40 MG VIAL IVP SCH (20:21)
[2019-04-26] MEDS: Sodium Chloride 0.45% 1,000 ML IV SCH (20:58)
[2019-04-27] MEDS: HumaLOG 300 UNITS/3 ML VIAL SC PRN ×2 (05:56→12:36)
[2019-04-27 07:30] VITALS: TEMP 98.4
[2019-04-27] MEDS: Nadolol 40 MG TAB PO SCH (08:23)
[2019-04-27] MEDS: K-Phos Neutral 250 MG TAB PO SCH ×2 (08:23→12:36)
[2019-04-27] MEDS: clonazePAM 0.5 MG TAB PO SCH (08:23)
[2019-04-27] MEDS: Sodium Chloride 0.45% 1,000 ML IV SCH (08:24)
[2019-04-27 09:40] LABS: #Eosinphils 0.1 thou/uL (0.0-0.7); #Lymphocytes 0.5 thou/uL (1.20-3.40); #Monocytes 0.2 thou/uL (0.11-0.59); #Neutrophils 0.9 thou/uL (1.40-6.50); %Eosinophils 3.8 % (0.0-10.0); %Lymphocytes 33.8 % (21.0-51.0); %Monocytes 9.6 % (0.0-10.0); %Neutrophils 52.9 % (42.0-75.0); Mean Corpuscular HGB CONC 32.3 g/dL (32.0-36.0); Mean Corpuscular Hemoglobin 27.6 pg (27.0-31.0); Mean Corpuscular Volume 85.4 fL (78.0-98.0); Mean Platelet Volume 11.8 fL (7.4-10.4); Platelet Count 54 thou/uL (130-400); RBC Distribution Width 15.5 % (11.5-14.5); Red Blood Cell (RBC) Count 3.98 mill/uL (4.20-5.40); White Blood Cell (WBC) Count 1.6 thou/uL (4.8-10.8)
[2019-04-27 18:07] VITALS: BP 134/83
--- NOTE | 2019-04-27 21:33 | DIS ---
DATE OF ADMISSION: 04/24/2019 DATE OF DISCHARGE: 04/27/2019 FINAL DIAGNOSES: 1. Partial small-bowel obstruction, resolved. 2. Diabetes mellitus, type 2. 3. Pancytopenia. 4. History of colorectal cancer. INGOT CASTER: Dr. Lorenzo, General Surgery. HOSPITAL COURSE: The patient is a 48-year-old female with history of rectal cancer status post colectomy in 2011, status post radiation and chemotherapy, currently followed at [facility], who presented to the emergency room in [place] with abdominal pain, nausea and vomiting. She was seen at [facility] and diagnosed with small-bowel obstruction. CT scan showed early partial small-bowel obstruction and General Surgery consultation was recommended. The patient's white count was 3, hemoglobin 11.8, hematocrit 38.6, carbon dioxide 21, glucose 267, lipase 5. She was given several doses of fentanyl, was transferred to the [facility] in [place]. The patient was placed on IV fluids, NG tube, slow suctioning, and General Surgery consultation was requested. She underwent small bowel x-ray with gastrografin, which did not show any high-grade bowel obstruction, it just showed small bowel distention which improved comparing to the previous imaging. She had several bowel movements and her partial small bowel obstruction was released. The patient was seen by Dr. Lorenzo, who recommended discharge home after advancing the diet, which was done and the patient was tolerating all her feedings. The patient had all her meals without any problems. She was able to get up and ambulate, and she was discharged home in good condition. Her blood pressure is 115/69, pulse is 60, temperature is 98.4, respirations 18, O2 saturation is 96% on room air. She was seen and examined before she was discharged. We recommend her to stay on 2000 calories ADA diet. ACTIVITY: As tolerated. MEDICATIONS: At the time of discharge: 1. Metformin 1000 mg twice a day. 2. Clonazepam one tablet twice a day. 3. MiraLAX 17 g once a day. 4. Pantoprazole 40 mg once a day. 5. Nadolol 40 mg once a day. 6. K-Phos 250 mg 4 times a day. 7. Insulin glargine 10 units daily. 8. Lexapro 10 mg once a day. FOLLOWUP: She will follow up with her primary care physician in 1 week. TIME SPENT: Time spent on this discharge is less than 30 minutes. Job ID: [id number]
--- NOTE | 2019-04-28 08:26 | PQF ---
ALESSANDRA CUNNINGHAM ZBIGNIEW A MD [id number] [facility] [id number] CLINICAL DOCUMENTATION CLARIFICATION FORM: POST DISCHARGE Addendum to original discharge summary date: ____ Late entry note date: __ DATE:04-28-2019 ATTN:Ritika Lau Please exercise your independent, professional judgment in responding to the clarification form. Clinical indicators are provided on the bottom of this form for your review Can you please specify if the patient partial SBO is a complication of abdominal surgery? Please check appropriate box(s): [ ] patient partial SBO is a complication of abdominal surgery [ ] patient partial SBO is not a complication of abdominal surgery [ ] Other diagnosis please specify: [ x] Unable to determine CLINICAL INDICATORS: ED Notes 04/24 "presents with evaluation of abdominal pain" ED Notes 04/24 "Pt reports vomiting" Small Bowel Xray 04/25 "mild diltions of loops of jejunum within the mid abdomen " HP 04/24 "Abdomen: diffusely tender. Distention is present" HP 04/24 "Small bowel obstruction appears partial" RISK FACTORS: ED Notes 04/24 - Presence of colostomy HP 04/24 - Hx of rectal cancer HP 04/24 - Previous proctocolectomy TREATMENT: Abdomen CT scan - Collected 04/24 Small Bowel Xray - Collected 04/25 NGT tube - HP 04/24 DS 04/27 - Consult general surgery DS 04/27 - IVF (This form is maintained as a part of the permanent medical record) 2014 [employer]. All Rights Reserved [email or web address] [not provided] MTDD
--- NOTE | 2019-04-28 20:23 | PQF ---
ALESSANDRA CUNNINGHAM ZBIGNIEW A MD [id number] [facility] [id number] CLINICAL DOCUMENTATION CLARIFICATION FORM: POST DISCHARGE Addendum to original discharge summary date: ____ Late entry note date: __ DATE:04-28-2019 ATTN:Ritika Rueda Please exercise your independent, professional judgment in responding to the clarification form. Clinical indicators are provided on the bottom of this form for your review Based on the below indicators can you please specify what the patient actually has. Please check appropriate box(s): Pancytopenia due to: [ ] Chemotherapy/antineoplastic drugs [ ] Other drug-induced (please specify if known): [ ] Other diagnosis please specify [ x ] Unable to determine In addition, please specify: Present on Admission (POA): [ ] Yes [ x] No [ ] Unable to determine For continuity of documentation, please document condition throughout progress notes and discharge summary. Thank You. CLINICAL INDICATORS: -PN 04/26 "pancytopenia" -PN 04/26 "if she had any chemotheraphy done recently, which wound explain her pancytopenia" -Labs WBC: 04/25:3.7 04/26:2.0 04/27:1.6 -Labs RBC: 04/26:3.87 04/27:3.98 -Labs Hgb: 04/25:11.4 04/26:10.7 04/27:11.0 -Labs Hct: 04/25:35.8 04/26:33.0 04/27:34.0 -Labs Platelet: 04/25:59 04/26:50 04/27:54 RISK FACTORS: -HP 04/24 - Hx of rectal cancer -HP 04/24 - s/p radiation theraphy -HP 04/24 - s/p chemotherapy TREATMENT: -DS 04/27 - IVF -Hematology monitoring - Collected 04/25 (This form is maintained as a part of the permanent medical record) 2014 [employer]. All Rights Reserved [email or web address] [not provided] MTDD
== END 2019-04-27 18:09 | disposition home or self-care (01) | DRG 389 ==
LOC: ERS 11:34 → T4-A 13:50
PROVIDERS: ADMIT Internal Medicine; ATTEND Internal Medicine
DX: K56.600 Partial intestinal obstruction, unspecified as to cause (principal); D61.818 Other pancytopenia; E11.9 Type 2 diabetes mellitus without complications; F41.9 Anxiety disorder, unspecified; I10 Essential (primary) hypertension; Z60.2 Problems related to living alone; Z92.3 Personal history of irradiation; Z88.1 Allergy status to other antibiotic agents; Z88.0 Allergy status to penicillin; Z79.4 Long term (current) use of insulin; Z88.2 Allergy status to sulfonamides; Z79.899 Other long term (current) drug therapy; Z85.048 Personal history of other malignant neoplasm of rectum, rectosigmoid junction, and anus; Z90.49 Acquired absence of other specified parts of digestive tract; Z92.21 Personal history of antineoplastic chemotherapy; Z90.710 Acquired absence of both cervix and uterus; Z93.3 Colostomy status
CPT/HCPCS: 36415; 36416; 74177; 74250; 80048; 80053; 85025; 96374; 96375; C9113; J2270; J2405; J3010; Q9963; Q9966